=== PATIENT | female | born 1970 | race African-American/Black ===

== ENCOUNTER 2021-01-04 19:00 | Outpatient (CLI) | payer BC | END 2021-01-04 19:01 | disposition home or self-care (01) | LOC: SLEEPLAB 19:00 | PROVIDERS: ATTEND Family Medicine | DX: G47.33 Obstructive sleep apnea (adult) (pediatric) (principal); R53.83 Other fatigue; E66.9 Obesity, unspecified; R51.9 Headache, unspecified; Z68.42 Body mass index [BMI] 45.0-49.9, adult | CPT/HCPCS: 95810 ==

== ENCOUNTER 2023-02-16 10:04 | Outpatient (CLI) | payer BC | END 2023-02-16 10:05 | disposition home or self-care (01) | LOC: BICRAD 10:04 | PROVIDERS: ATTEND Family Medicine | DX: M25.562 Pain in left knee (principal); M25.561 Pain in right knee; M25.861 Other specified joint disorders, right knee ==

== ENCOUNTER 2024-04-08 18:32 | Outpatient (CLI) | payer BC | END 2024-04-08 18:33 | disposition home or self-care (01) | LOC: SCSRAD 18:32 | PROVIDERS: ATTEND Nurse Practitioner Family | DX: M25.562 Pain in left knee (principal) ==